=== PATIENT | female | born 1960 | race Caucasian/White ===

== ENCOUNTER 2022-01-16 17:54 | Emergency (ER) | payer OTHER, SELFPAY ==
--- NOTE | ~2022-01-16 | XR_ITS ---
EXAMINATION: XR chest 2V DATE: 01/16/2022 18:33 INDICATION: Shortness of breath. Hypertension. TECHNIQUE: PA and lateral views of the chest were obtained. COMPARISON: None FINDINGS: Linear discoid atelectasis/scarring at the left mid lung zone. No other airspace opacities, pulmonary edema, pleural effusion or pneumothorax. Mild cardiomegaly. Mild thoracic dextrocurvature with mild spondylosis. IMPRESSION: 1. Linear discoid atelectasis/scarring the left midlung zone. 2. Cardiomegaly. Reviewed, dictated and finalized at location A. CTOR OF PROVIDER RELATIONS
--- NOTE | 2022-01-16 17:56 | ED.URI ---
HPI - URI/Sore Throat General Chief Complaint: Asthma Stated Complaint: can't take a deep breath Time Seen by Provider: 01/16/22 17:56 Source: patient and RN notes reviewed History of Present Illness HPI Narrative: Patient is 61-year-old female who presents the urgent care with complaints of shortness of breath increased with lying flat. Patient states that she is supposed to be on blood pressure medication which she has not taken in some time because she does not have a doctor . Patient states that [facility] . Patient does not have nebulizers or inhalers at home and has been using [id number] mist and Benadryl without much symptom relief. Denies of any recent fevers. Reports of nonproductive cough. No other acute complaints. No acute distress noted. Patient read the plan of care. Some parts of this dictation were generated by voice recognition software and may contain typographical and/or grammatical inaccuracies. Related Data Home Medications Medication Instructions Recorded Confirmed No Home Medications 01/16/22 01/16/22 Allergies Allergy/AdvReac Type Severity Reaction Status Date / Time No Known Allergies Allergy Verified 01/16/22 18:10 Review of Systems Review of Systems: CONSTITUTIONAL: Denies fever, chills, or sweats. EYES: Denies visual changes, redness, or discharge. ENT: Denies rhinorrhea, congestion, sore throat, or otalgia. CARDIOVASCULAR: Denies chest pain, palpitations, or edema. RESPIRATORY: Reports a mild cough with intermittent dyspnea, worse when laying flat or with activity GASTROINTESTINAL: Denies abdominal pain, nausea, vomiting, or diarrhea. GENITOURINARY: Denies dysuria or hematuria. SKIN: Denies rash or itching. MUSCULOSKELETAL: Denies back pain, joint pain, or myalgia. NEUROLOGIC: Denies headache, numbness, or weakness. All other systems reviewed are negative, except as documented in HPI. PMFSH Comments At the time of my signature, I reviewed and agree with the nursing past medical, surgical, social, and family history. There is no relevant family history pertinent to the patient complaint. Exam Narrative: GENERAL: This is a well-nourished, well-developed patient, in no apparent distress. HEAD: normocephalic, atraumatic. EYES: PERRL. Sclera clear/white. Vision is grossly intact. EARS: External ears normal, auditory canals clear and without drainage, TMs normal without perforation. Hearing grossly intact. NOSE: External nose normal with no obvious nasal discharge, nares without redness, no rhinorrhea. THROAT: Mucous membranes moist, posterior pharynx clear. Mild postnasal drainage NECK: Neck supple CARDIOVASCULAR: Regular rate and rhythm without murmurs, gallops, or rubs. RESPIRATORY: Expiratory wheezes to right upper, diminished throughout SKIN: warm, intact with no suspicious lesions or rash, good texture and turgor. NEURO: awake, alert, and oriented to person, place and time. There were no obvious focal neurologic abnormalities. EXTREMITIES: No clubbing, cyanosis, or edema. Course Course Level of Care: Express Care Visit Vital Signs Vital signs: Vital Signs Temperature 98.4 F 01/16/22 18:07 Pulse Rate 102 H 01/16/22 18:07 Respiratory Rate 20 01/16/22 18:07 Blood Pressure 178/130 H 01/16/22 18:07 Pulse Oximetry 95 01/16/22 18:07 Temperature 98.4 F 01/16/22 18:07 Pulse Rate 102 H 01/16/22 18:07 Respiratory Rate 20 01/16/22 18:07 Blood Pressure 178/130 H 01/16/22 18:07 Pulse Oximetry 95 01/16/22 18:07 Reviewed-patient is informed that they may have pre-hypertension or hypertension based on a blood pressure reading in the department. I recommend the patient call the primary care provider listed on their discharge instructions or a physician of their choice this week to arrange follow-up for further evaluation of possible pre-hypertension or hypertensionClay Pete
[2022-01-16 18:07] VITALS: BP 178/130; PULSE 102; RESP 20; TEMP 36.9; O2SAT 95
== END 2022-01-16 18:59 | disposition home or self-care (01) ==
PROVIDERS: Emergency Provider Nurse Practitioner Family
DX: J45.30 Mild persistent asthma, uncomplicated (principal)
CPT/HCPCS: 71046; 99213; G0463